=== PATIENT | female | born 1965 | race Hispanic/Latino ===

== ENCOUNTER → 2025-02-27 | Outpatient (CLI) | payer BC ==
--- NOTE | 2025-02-27 13:57 | HMCIMG ---
DEXA BONE DENSITY SURVEY HISTORY: Menopause COMPARISON: None FINDINGS: Bone densitometry study was performed. Bone mineral density of the lumbar spine is 1.003 gram per centimeter square which corresponds to a T score of -0.4 and a Z score of 0.9. Bone mineral density of the left hip is 0.960 grams per centimeter square which corresponds to a T score of 0.0 and a Z score of 0.9. IMPRESSION: 1. Normal bone mineral density of the lumbar spine and left hip.
== END | disposition home or self-care (01) ==
LOC: RAH 12:50
PROVIDERS: ATTEND Internal Medicine
DX: Z78.0 Asymptomatic menopausal state (principal)
CPT/HCPCS: 77080